=== PATIENT | male | born 1940 | race Caucasian/White ===

== ENCOUNTER 2016-12-27 08:00 | Outpatient (CLI) | payer MEDICARE ==
[~2016-12-27 08:00] MED LIST: AMLO5TAB; B COMPLEX1 TA1; CARVEDILOL 25MG25 MG PO; CENTRUM SILVER1 TA1; CIPRO 250MG TA250 MG PO; CIPROFLOXACIN500 MG PO; DYAZIDE CAP (M1 EACH PO; FLOMAX 0.4MG C0.4 MG PO; K-99595 MG PO; LIPITOR10 MG; LISINOPRIL/HCTZ1 TA1; NIACIN500 M3; ONCOVITE1 TAB; PERCOCET 325 MG1 TA4 PO; VITAMIN C1000 MG
== END 2016-12-27 08:29 | disposition home or self-care (01) ==
LOC: COP 08:00
DX: G61.81 Chronic inflammatory demyelinating polyneuritis (principal); Z45.2 Encounter for adjustment and management of vascular access device
CPT/HCPCS: J1642

== ENCOUNTER → 2017-02-22 | Outpatient (CLI) | payer MEDICARE ==
--- NOTE | 2017-02-22 10:29 | RADIOLOGY REPORT PS360 ---
CHEST(2 VIEWS-NOT PORTABLE) HISTORY: SHORTNESS OF BREATH ORDERING PHYSICIAN: Phani Cochran MD PATIENT AGE: 76 years COMPARISON: 10/14/2015 FINDINGS: There is mild cardiomegaly without failure. Mediport catheter remains in place with the tip in region of the SVC. Small area of increased density overlies the bilateral fifth ribs anteriorly and could be due to nipple shadow. No lobar consolidation or collapse. No acute bony anomalies. IMPRESSION: 1. Cardiomegaly without failure. 2. Probable nipple shadows bilaterally
== END ==
LOC: RAD 09:21
DX: R06.02 Shortness of breath (principal)

== ENCOUNTER 2017-05-02 08:00 | Outpatient (CLI) | payer MEDICARE ==
[2017-05-02 08:10] VITALS: BP 144/68
== END 2017-05-02 08:30 | disposition home or self-care (01) ==
LOC: COP 08:00
DX: Z45.2 Encounter for adjustment and management of vascular access device (principal)
CPT/HCPCS: J1642